=== PATIENT | female | born 1970 | race Caucasian/White ===

== ENCOUNTER 2022-06-29 14:56 | Outpatient (CLI) | payer OTHER, SELFPAY ==
--- NOTE | ~2022-06-29 | CT_ITS ---
EXAMINATION: CT orbit BI wo con DATE: 06/29/2022 15:18 INDICATION: Right ocular pain. TECHNIQUE: Computed tomography (CT) of the orbits was performed without intravenous contrast. Automat ed exposure control and iterative reconstruction technique were employed. The dose-length product was 218.04 mGy-cm. COMPARISON: None FINDINGS: There are likely changes of ocular lens replacement surgeries. There is an old blowout frac ture of floor of right orbit. No acute fracture. The extra-axial muscles are normal. There is mild mu cosal thickening in the paranasal sinuses. IMPRESSION: 1. Old blowout fracture of floor of right orbit. Reviewed, dictated and finalized at location A. ERECTOR
== END 2022-06-29 14:57 ==
PROVIDERS: PCP Internal Medicine
DX: H57.11 Ocular pain, right eye (principal)
CPT/HCPCS: 70480

== ENCOUNTER 2022-09-21 01:13 | Day surgery (SDC) | payer OTHER, SELFPAY ==
[2022-09-17 08:37] VITALS: BMI 20.1
--- NOTE | 2022-09-17 08:51 | PC.NURSE ---
Addendum entered by Shayna Su RN 09/18/22 15:50: PT TO ARRIVE AT 0830 ON 09-21-22 FOR SURGERY AT 1030. NO MORE VITAMINS UNTIL AFTER SURGERY. MAX 20 OZ CLEAR LIQUIDS UNTIL 0730. Original Note: Report to the Outpatient Waiting Room, entrance under the green pavilion located off [facility], at time 11:30AM on date 09-28-22. Planned Procedure Time: 1:30PM. Time changes happen often and if your time is changed the preop area will call you the afternoon before. - You and your visitor will be asked to self-screen and do not enter if you have any COVID symptoms. - A mask is optional within the hospital at this time. Patients may have clear liquids (water, carbonated beverages, clear teas, apple juice) until 3 hours prior to surgery (10:30AM) with a maximum of 20 ounces. - No food from midnight until time of surgery Take the following medications with a SIP of water the morning of surgery: N/A DO NOT STOP ANY OF YOUR OTHER PRESCRIPTION MEDICATIONS PRIOR TO SURGERY ?EXCEPT THE FOLLOWING Medications to discontinue per physician: VITAMIN Date to take last dose 09-24-22 Please no make-up, nail yoruba, hairspray, perfume, deodorant, or body powder the day of surgery. No jewelry (including any body piercings) or valuables the day of surgery, leave them at home. Please take a shower or bath the night before, or the morning of, surgery with an antibacterial soap. Wear comfortable, loose fitting clothing. - Jewelry must be removed prior to entering the operating room. Rings and piercings that are not removed may be cut off. - The hospital will not accept responsibility for valuables. - Please leave all valuables, including medications, at home the day of surgery. If you are going home after surgery, a licensed bulk driver must drive you home. - NO public transportation without another adult if you receive anesthesia. - We recommend that an adult stay with you for 24 hours following discharge. - We also recommend that you do not drive, make important decision, drink alcoholic beverages, or take any drugs that were not prescribed by your health care provider for at least 24 hours after your discharge time. Follow any additional instructions given to you from your surgeon. If you or anyone in your household have experienced Covid symptoms in the past week, please notify your surgeon or the nurse liaison at the phone number below for possible testing. Telephone instructions given to PATIENT and asked if any additional questions and then verbalized understanding. Patient advised to call surgeon office or pre surgery nurse liaison [phone] if any additional questions.
--- NOTE | 2022-09-18 15:49 | PC.NURSE ---
Pt states no changes in medications or health history since initial interview. New pre-op instructions reviewed with pt. Pt denies further questions at this time.
[2022-09-21 09:57] VITALS: BP 101/71; PULSE 85; RESP 16; TEMP 36.5; O2SAT 100
--- NOTE | 2022-09-21 10:20 | WPDHPUPDATE1 ---
History and Physical Update Update Date/Time: 09/21/22 10:20 History and Physical has been reviewed, including an updated exam of the patient. There are NO changes in the patient's condition. Risks, benefits, and alternatives have been discussed and questions answered. Patient agrees to proceed with procedure.
--- NOTE | 2022-09-21 10:48 | WPDANESEPP ---
Anes - Eval Pre Procedure Procedure: Operation Date: 09/21/22 10:30 Proposed Procedures p Excisional Biopsy Left Lower Back Mass - Malika Dan MD Date/Time: 09/21/22 10:48 Pre Op Diagnosis: left lower back mass Patient Data Age: 52 Gender: F Height: 1.73 m Weight: 61.2 kg Last Vital Signs Temp 97.7 F 09/21/22 09:57 Pulse 85 09/21/22 09:57 Resp 16 09/21/22 09:57 BP 101/71 09/21/22 09:57 Pulse Ox 100 09/21/22 09:57 O2 Del Method Room Air 09/21/22 09:57 Allergies Allergy/AdvReac Type Severity Reaction Status Date / Time Penicillins Allergy Mild Unknown Verified 09/21/22 08:52 Sulfa (Sulfonamide AdvReac Severe Rash Verified 09/21/22 08:52 Antibiotics) Home Medications Medication Instructions Recorded Confirmed Type multivitamin 1 tablet PO DAILY 09/09/22 09/18/22 History Patient hx anesthesia problems: none Family hx anesthesia problems: none Results Review: All pre-operative results and documents have been reviewed as part of the pre-operative evaluation. [facility], [facility] Past Medical History Medical History Arthritis Bunion of great toe Cataract fragments of eye following cataract surgery ETOHism History of seizure Surgical History Surgical History H/O eye surgery History of bunionectomy History of gynecologic surgery ENDO/OVARIAN CYST REMOVED Family History Family History Father Heart disease Mother Heart disease Social History Social History Smoking status: Never smoker Second hand tobacco smoke exposure: Yes (FRIENDS) Alcohol intake: current Drinks per week: 18 Alcohol use details: BEER Substance use: never Substance use type: does not use Living arrangements: alone Occupation/Education: occupation Additional occupation/education comments: Teacher Spiritual care concerns: No Exam Day of Procedure 09/21/22 10:48 Patient weight: normal Heart: regular rate and rhythm Airway: Mallampati scale class II Neurological: alert and oriented
[2022-09-21] MEDS: ceFAZolin 2 GM/D5W 50 ML 2 GM/50 ML BAG IVPB (10:53)
--- NOTE | 2022-09-21 10:55 | P.PNAN_ITS ---
Anes - Eval Final PreProcedure Day of Procedure 09/21/22 10:55 Patient weight: normal Heart: regular rate and rhythm Lungs: clear to auscultation Airway: Mallampati scale class II Neurological: alert and oriented Last oral intake: >/= 8 hours ASA classification: III Emergent: no Anesthetic plan: proceed Anesthesia type and monitoring: general GIVS and LMA and standard monitoring Results Review: All pre-operative results and documents have been reviewed as part of the pre- operative evaluation. Informed Consent: The patient's anesthetic plan and its attendant risks and benefits were discussed with the patient/family/POA. Questions were solicited and answers provided to the satisfaction of the patient/family/POA.
[2022-09-21] MEDS: BUPIVACAINE/EPINEPHRINE 0.5% 50 ML VIAL 10 ML INFILTRATE (11:11)
[2022-09-21 11:50] VITALS: BP 92/63; PULSE 74; RESP 12; O2SAT 100
--- NOTE | 2022-09-21 12:03 | W.PM.PROC2 ---
Procedure Note - Detailed Date of Procedure 09/21/22 Pre-op Diagnosis left lower back mass Post-op Diagnosis Same Procedure Performed Excisional biopsy left lower back mass measuring approximately 12 x 6 cm Surgeon Malika Dan MD Anesthesia MAC and Local Indications 52-year-old female presenting to the office with a growing left back mass. The patient reports the mass has been progressively enlarging and becoming more more symptomatic. Findings Calcified back mass measuring approximately 12 x 6 cm with extensive surrounding scarring Description of Procedure The patient was taken to the operating room and placed in the supine position. After adequate induction of MAC anesthesia, the patient was prepped and draped in the normal sterile fashion. A time-out was then done to verify the patient's identity, as well as the procedure being performed. I then localized the area in and around this mass in the left lower back. Once adequately anesthetized, I made an incision over the most central area of the mass. Upon getting into the subcutaneous tissue, a calcified mass was encountered. There was extensive scarring around this mass. Was able to sharply dissect the surrounding tissue and dermis off the mass. The mass was entirely located within the subcutaneous tissue. I was able to separate the underlying muscle off the mass posteriorly. Once the mass was completely excised it was noted to measure approximately 12 x 6 cm. It will be sent to pathology for further review. I then gained hemostasis with the Bovie cautery and the cavity was thoroughly irrigated. No other pathology was noted. I then closed the subcutaneous tissue with 3-0 Vicryl suture. The skin was closed with 4-0 Monocryl subcuticular suture. Dermabond was placed on the wound. Estimated Blood Loss 10 Drains No Packing No Pathology Yes Complications No immediate complications Condition Stable Disposition PACU [facility] Billing Surgery - Charge Forward: Surgery Billing
[2022-09-21 12:20] VITALS: BP 115/77; PULSE 72; RESP 14
[2022-09-21] MEDS: oxyCODONE HCL (*CRX) 5 MG TAB IR PO (12:35)
[2022-09-21 12:47] VITALS: BP 117/59; PULSE 62; RESP 12
[2022-09-21 13:16] VITALS: BP 126/76; PULSE 70; RESP 14
== END 2022-09-21 12:20 | disposition home or self-care (01) ==
PROVIDERS: PCP Internal Medicine; Visit Provider Surgery
PROC: (CPT 21931; principal; 2022-09-21 10:30)
DX: M79.89 Other specified soft tissue disorders (principal)
CPT/HCPCS: 21931; 88304; A9270; J0690; J2250; J2405; J2704; J3010